=== PATIENT | female | born 1995 | race Caucasian/White ===

== ENCOUNTER 2017-12-10 10:30 | Inpatient (IN) | payer OTHER ==
[2017-12-10] MEDS ORDERED: DINOPROSTONE 10 MG VAGINAL SUPPOSITORY VG ONE (11:15)
[2017-12-10 11:51] VITALS: BMI 30.3
[2017-12-10 12:11] LABS: BASO % 0.3 % (0-2.0); EOS % 1.2 % (0-4.5); HEMATOCRIT 36.1 % (32.4-45.2); HEMOGLOBIN 12.1 GM/dL (10.7-15.3); LYMPH % 19.8 % (8-40); MCH 29.9 pg (25.7-33.7); MCHC 33.4 g/dl (32.0-36.0); MEAN CELL VOLUME 89.5 fl (80-96); MEAN PLT VOLUME 10.4 fl (7.5-11.1); MONO % 10.1 % (3.8-10.2); NEUT % 68.6 % (42.8-82.8); PLATELET COUNT 253 K/MM3 (134-434); RBC 4.03 M/mm3 (3.60-5.2); WHITE BLOOD COUNT 18.1 K/mm3 (4.0-10.0)
[2017-12-10 12:33] LABS: INR 0.97 (0.83-1.09)
[2017-12-10 12:35] LABS: ACTIVATED PTT 27.3 SECONDS (25.2-36.5)
[2017-12-10] MEDS ORDERED: TUBERCULIN PPD 5 TU/0.1ML SYRINGE (IN PATIENT USE ONLY) ID ONE (13:00)
[2017-12-10 13:09] LABS: ANION GAP 11 MMOL/L (8-16); BLOOD UREA NITROGEN 11 mg/dL (7-18); CALCIUM 8.8 mg/dL (8.5-10.1); CHLORIDE 111 mmol/L (98-107); CO2 18 mmol/L (21-32); CREATININE 0.5 mg/dL (0.55-1.3); GLUCOSE,RANDOM 69 mg/dL (74-106); POTASSIUM 4.2 mmol/L (3.5-5.1); SODIUM 139 mmol/L (136-145)
--- NOTE | 2017-12-10 16:17 | HP ---
Past Medical History - Primary Care Physician PCP:: Jalil Olivas - Admission Chief Complaint: 21yo P0 with at EGA 40 1/7 wks with c/o leaking fluids since 3am History of Present Illness: Pt with leaking fluids since 3am, not in labor. Rh Negative Vag GBS Negative Prior hx of marijuana use Hx of XANAX abuse (illicit use) in - pt states that she stopped. Hx of smoking- pt states that she stopped History Source: Patient, Medical Record Limitations to Obtaining History: No Limitations - Past Medical History MANAGER RELIABILITY: No: Alzheimer's, CVA, Dementia, Migraine, Multiple Sclerosis, Peripheral Neuropathy, Parkinson's, Seizure, Syncope, TIA, Vertigo, Other Cardiovascular: No: AFIB, Aneurysm, Aortic Insufficiency, Aortic Stenosis, CAD, CHF, Deep Vein Thrombosis, HTN, Hyperlipdemia, GA, Mitral Insufficiency, Mitral Stenosis, Murmur, Pulmonary Hypertension, Other Pulmonary: No: Asthma, Bronchitis, Cancer, COPD, O2 Dependent, Pneumonia, Previously Intubated, Pulmonary Embolus, Pulmonary Fibrosis, Sleep Apnea, Other Gastrointestinal: No: Ascites, Cancer, Constipation, Crohn's Disease, Diverticulitis, Diverticulosis, Esophageal Varices, Gastritis, GERD, GI Bleed, Hemorrhoids, Hiatal Hernia, Inflamatory Bowel Disease, Irritable Bowel Disease, Pancreatitis, Peptic Ulcer Disease, Ulcerative Colitis, Other Hepatobiliary: No: Cirrhosis, Cholelithiasis, Cholecystitis, Choledocholithiasis , Hepatitis A, Hepatitis B, Hepatitis C, Other Renal/: No: Renal Failure, Renal Inusuff, BPH, Cancer, Hematuria, Hemodialysis , Neurogenic Bladder, Renal Calculi, UTI, Other Reproductive: No: Ectopic , Endometriosis, Fibroids, PID, Polycystic Ovary Syndrome, Postmenopausal, Other ...: 1 ...Para: 0 ...LMP: 03/03/17 ... Weeks Gestation by Dates: 40.2 ...EDC by Dates: 12/08/17 ...EDC by Sono: 12/09/17 Heme/Onc: No: Anemia, B12 Deficiency, Bleeding Disorder, Cancer, Current Chemotherapy, Current Radiation Therapy, Hemochromatosis, Hypercoaguable State, Myeloproliferative Synd, Sickle Cell Disease, Sickle Cell Trait, Thrombocytopenia, Other Infectious Disease: No: AIDS, C-Diff, Herpes Zoster, HIV, MRSA, STD's, Tuberculosis, VREF, Other Psych: Yes: Addictions (Stopped using in ) Musculoskeletal: No: Bursitis, Chronic low back pain, Hemiparesis, Hemiplegia, Osteoarthritis, Paraplegia, Other Rheumatology: No: Fibromyalgia, Gout, Lupus, Rheumatoid Arthritis, Sarcoidosis, Vasculitis, Other ENT: No: Allergic Rhinitis, Sinusitis, Other Endocrine: No: Anoop's Disease, [place]'s Disease, Diabetes Insipidus, Diabetes Mellitus, Hyperparathyroidism, Hyperthyroidism, Hypothyroidism, Osteopenia, SIADH, Other Dermatology: No: Basal Cell, Cellulitis, Eczema, Melanoma, Psoriasis, Squamous Cell, Other - Past Surgical History Past Surgical History: Yes: None Hx Myomectomy: No Hx Transabdominal Cerclage: No - Smoking History Smoking history: Never smoked Have you smoked in the past 12 months: Yes Aproximately how many cigarettes per day: 0 - Alcohol/Substance Use Hx Alcohol Use: No History of Substance Use: reports: Marijuana, Prescription (Xanax) Date of Last Use: 06/20/17 - Social History Usual Living Arrangement: Yes: With Parent ADL: Independent History of Recent Travel: Yes Home Medications - Allergies Allergies/Adverse Reactions: Allergies Allergy/AdvReac Type Severity Reaction Status Date / Time No Known Allergies Allergy Verified 11/27/17 14:09 - Home Medications Home Medications: Ambulatory Orders NK [No Known Home Medication] 12/10/17 Family Disease History - Family Disease History Family History: Denies Family Disease History: Other: Mother (Anxiety), Sister (Anxiety) Review of Systems - Review of Systems Constitutional: reports: No Symptoms Eyes: reports: No Symptoms HENT: reports: No Symptoms Neck: reports: No Symptoms Cardiovascular: reports: No Symptoms Respiratory: reports: No Symptoms Gastrointestinal: reports: No Symptoms Genitourinary: reports: No Symptoms Breasts: reports: No Symptoms Reported Musculoskeletal: reports: No Symptoms Integumentary: reports: No Symptoms Neurological: reports: No Symptoms Endocrine: reports: No Symptoms Hematology/Lymphatic: reports: No Symptoms Psychiatric: reports: No Symptoms Pain Intensity: 0 Physical Exam - Maternity Vital Signs: Vital Signs Temperature 97.8 F 12/10/17 14:00 Pulse Rate 81 12/10/17 15:00 Respiratory Rate 20 12/10/17 15:00 Blood Pressure 137/67 12/10/17 15:00 O2 Sat by Pulse Oximetry (%) Constitutional: Yes: Well Nourished, No Distress, Calm Eyes: Yes: WNL, Conjunctiva Clear HENT: Yes: WNL, Atraumatic, Normocephalic Neck: Yes: WNL, Supple, Trachea Midline Cardiovascular: Yes: WNL, Regular Rate and Rhythm Lungs: Clear to auscultation, Normal air movement - Abdominal Exam/OB Fundal Height: 40 Number of Fetuses: Single Presentation: Vertex Contractions: Yes Regularity: Irritability Intensity: Unaware Monitor Mode: External Heart Rate (range): 125 Category: I Accelerations: Non-Uniform Decelerations: None - Vaginal Exam/OB Vaginal Bleediing: No Speculum Exam: No Dilatation (cm): 1 Effacement (%): 50 Amniotic Membrane Status: Leaking Nitrazine Test: Positive Amniotic Fluid: Yes: Clear Presentation: Vertex/Position Station: -4 (Adequate pelvimetry) - Physical Exam Musculoskeletal: Yes: WNL Extremities: Yes: WNL Edema: No Integumentary: Yes: WNL Deep Tendon Reflex Grade: Normal +2 ...Motor Strength: WNL Psychiatric: Yes: WNL, Alert, Oriented - Labs Lab Results: CBC, BMP 12/10/17 11:30 12/10/17 11:30 Hemorrhage Risk Assessment - Risk Factors Medium Risk Factors: Yes: None High Risk Factors: Yes: None Risk Score: 1 Risk Level: Medium Risk Imaging - Results Ultrasound: Report Reviewed Assessment/Plan 21yo P0 with at EGA 40 1/7 wks with PROM. Pt is not in labor. Fetus with Category I tracing. Adequate gynecoid pelvimetry on exam. We had long discussion re: risks, benefits, and alternatives of labor induction. I explained the options of expectant management awaiting spontaneous labor, induction of labor, and elective section. The risks of uterine tachysystole, distress, uterine rupture, need for emergency C/S, hemorrhage, infection, scarring, etc. were discussed. We also discussed the risks of meconium aspiration, shoulder dystocia, and anesthesia options. The pt requested to proceed with induction. We discussed the alternative methods of induction with Cervidil, Cytotec, Folley ballon, and pitocin. The pt prefers Cervidil followed by pitocin, if needed.
[2017-12-10] MEDS: DEXTROSE 5%-LACTATED RINGERS 1,000 ML IV SCH (16:30)
[2017-12-10 16:53] LABS: URINE APPEARANCE CLEAR; URINE BILIRUBIN NEGATIVE (<2.0 mg/dL); URINE COLOR LTYELLOW; URINE GLUCOSE (UA) NEGATIVE (NEGATIVE); URINE KETONE NEGATIVE (NEGATIVE); URINE NITRITE NEGATIVE (NEGATIVE); URINE PROTEIN NEGATIVE (NEGATIVE); URINE UROBILINOGEN NEGATIVE mg/dL (0.2-1.0)
[2017-12-10 16:54] LABS: URINE LEUK ESTERASE 2+ (NEGATIVE)
[2017-12-10 16:55] LABS: EPI CELLS RARE /HPF (FEW); URINE MUCUS RARE
[2017-12-10 20:33] LABS: COCAINE, UR NEGATIVE ng/ml (CUTOFF=300); METHADONE, UR NEGATIVE ng/ml (CUTOFF=300); OPIATES, URI NEGATIVE ng/ml (CUTOFF=300); PHENCYCLIDINE,URINE NEGATIVE ng/ml (CUTOFF=25); URINE AMPHETAMINES NEGATIVE ng/ml (CUTOFF=500); URINE BARBITURATES NEGATIVE ng/ml (CUTOFF=200); URINE BENZODIAZEPINES NEGATIVE ng/ml (CUTOFF=200)
[2017-12-11] MEDS ORDERED: BUTORPHANOL TARTRATE 1 MG/ML VIAL IVPB ONE (00:20)
[2017-12-11] MEDS ORDERED: PROMETHAZINE HCL 25 MG/1 ML VIAL IVPB ONE (00:20)
[2017-12-11] MEDS: DEXTROSE 5%-LACTATED RINGERS 1,000 ML IV SCH (01:20)
[2017-12-11] MEDS ORDERED: BUTORPHANOL TARTRATE 1 MG/ML VIAL ONE ×2 (01:27)
[2017-12-11] MEDS ORDERED: PROMETHAZINE HCL 25 MG/1 ML VIAL ONE (01:28)
[2017-12-11] MEDS ORDERED: AMPICILLIN - 2 GM in SODIUM CHLORIDE 100 ML IVPB ONE (06:30)
[2017-12-11] MEDS ORDERED: AMPICILLIN SODIUM 2 GM VIAL ONE (06:47)
[2017-12-11] MEDS ORDERED: OXYTOCIN 30 UNITS in 0.9% NS 30 UNIT/500 ML INFUS.BAG IVPB ONE ×2 (06:47→09:08)
[2017-12-11] MEDS ORDERED: OXYTOCIN 30 UNITS in 0.9% NS 30 UNIT/500 ML INFUS.BAG IVPB SCH (07:00)
[2017-12-11] MEDS ORDERED: NALOXONE HCL 0.4 MG/ML VIAL IVPUSH PRN (08:17)
--- NOTE | 2017-12-11 08:25 | PN ---
Ante-Partal Exam - Subjective Subjective: Pt is c/o painful contractions. She requested epidural. Vital Signs: Vital Signs Temperature 97.9 F 12/11/17 07:00 Pulse Rate 82 12/11/17 07:00 Respiratory Rate 20 12/11/17 07:00 Blood Pressure 124/64 12/11/17 07:00 O2 Sat by Pulse Oximetry (%) Bleeding: No Headache: No Visual changes: No Right upper quadrant pain: No Pain (scale 1-10): 7 - Contractions Contractions: Yes Regularity: Irregular (q4-7min) Intensity: Moderate Monitor Mode: External - Exam during Labor Heart Rate: 130 Variability: Moderate Heart Rate Location: Midline Category: I Monitor Accelerations: Present Monitor Decelerations: None Amniotic Membrane Status: Leaking Amniotic Fluid: Clear - Intrapartum Hemorrhage Risk Medium Risk Factors: None High Risk Factors: None Risk Score: 0 Risk Level: Low Risk - Assessment/Plan Assessment/Plan: 21yo P0 with PROM undergoing labor induction. Pt is in spontaneous latent labor. The tracing is Category I. Plan to wait for pt to get an epidural and then start pitocin to augment contractions.
[2017-12-11] MEDS: ELECTROLYTE-148 SOLN 1,000 ML IV SCH ×3 (08:30→12:25)
[2017-12-11] MEDS ORDERED: FENTANYL/BUPIVACAINE/NS/PF - PCEA - 50 ML DISP.SYRIN EP ONE ×4 (09:08→22:06)
[2017-12-11] MEDS: FENTANYL/BUPIVACAINE/NS/PF - PCEA - 50 ML DISP.SYRIN EP SCH ×3 (09:15→17:52)
--- NOTE | 2017-12-11 09:29 | PN ---
Ante-Partal Exam - Subjective Subjective: S/p epidural, no complaints Vital Signs: Vital Signs Temperature 98.8 F 12/11/17 08:00 Pulse Rate 82 12/11/17 07:00 Respiratory Rate 20 12/11/17 07:00 Blood Pressure 124/64 12/11/17 07:00 O2 Sat by Pulse Oximetry (%) Bleeding: No Headache: No Visual changes: No Right upper quadrant pain: No Pain (scale 1-10): 0 - Contractions Contractions: Yes Regularity: Irregular Intensity: Moderate Monitor Mode: External - Exam during Labor Heart Rate: 130 Variability: Moderate Heart Rate Location: Midline Category: I Monitor Accelerations: Present Monitor Decelerations: None Exam: Vaginal Dilatation (cm): 3 Effacement (%): 80 Amniotic Membrane Status: Leaking Amniotic Fluid: Clear Presentation: Vertex Station: -2 - Intrapartum Hemorrhage Risk Medium Risk Factors: None High Risk Factors: None Risk Score: 0 Risk Level: Low Risk - Assessment/Plan Assessment/Plan: tracing category I Progressed in latent labor. Pitocin started. Afebrile, no s/sx's of chorio
[2017-12-11] MEDS ORDERED: AMPICILLIN SODIUM 1 GM VIAL ONE ×4 (09:41→22:28)
[2017-12-11] MEDS ORDERED: SODIUM CHLORIDE 100 ML IVPB ONE ×3 (09:41→16:26)
[2017-12-11] MEDS: AMPICILLIN - 1 GM in SODIUM CHLORIDE 100 ML IVPB SCH ×4 (10:07→22:30)
--- NOTE | 2017-12-11 11:57 | PN ---
Ante-Partal Exam - Subjective Subjective: No complaints Vital Signs: Vital Signs Temperature 98.4 F 12/11/17 10:00 Pulse Rate 80 12/11/17 11:00 Respiratory Rate 20 12/11/17 11:00 Blood Pressure 104/77 12/11/17 11:00 O2 Sat by Pulse Oximetry (%) 97 12/11/17 11:00 Bleeding: No Headache: No Visual changes: No Right upper quadrant pain: No Pain (scale 1-10): 0 - Contractions Contractions: Yes Regularity: Regular Intensity: Mild/Mod - Exam during Labor Heart Rate: 130 Variability: Moderate Heart Rate Location: Midline Category: I Monitor Accelerations: Present Monitor Decelerations: None Exam: Vaginal Dilatation (cm): 3 Effacement (%): 80 Amniotic Membrane Status: Leaking (AROM forebag) Amniotic Fluid: Meconium Stained Meconium Staining: Light Presentation: Vertex Station: -2 Remarks: Small amount of amniotic fluid noted - Intrapartum Hemorrhage Risk Medium Risk Factors: None High Risk Factors: None Risk Score: 0 Risk Level: Low Risk - Assessment/Plan Assessment/Plan: Latent labor Fetus with category I tracing Continue pitocin Monitor labor progress.
[2017-12-11] MEDS ORDERED: BUPIVACAINE HCL/PF 0.5% (5MG/ML) 10 ML VIAL ONE (18:26)
--- NOTE | 2017-12-11 21:46 | PN ---
Ante-Partal Exam - Subjective Subjective: No complaints Vital Signs: Vital Signs Temperature 99.0 F 12/11/17 20:00 Pulse Rate 110 H 12/11/17 21:00 Respiratory Rate 20 12/11/17 21:00 Blood Pressure 135/81 12/11/17 21:00 O2 Sat by Pulse Oximetry (%) 97 12/11/17 21:00 Bleeding: No Headache: No Visual changes: No Right upper quadrant pain: No Pain (scale 1-10): 0 - Contractions Contractions: Yes Regularity: Regular Intensity: Unaware Monitor Mode: External - Exam during Labor Heart Rate: 140 Variability: Moderate Heart Rate Location: Midline Category: I Monitor Accelerations: Present Monitor Decelerations: None Exam: Vaginal Dilatation (cm): 7 Effacement (%): 90 Amniotic Membrane Status: Leaking Amniotic Fluid: Clear Presentation: Vertex Station: -1 - Intrapartum Hemorrhage Risk Medium Risk Factors: None High Risk Factors: None Risk Score: 0 Risk Level: Low Risk - Assessment/Plan Assessment/Plan: Progressed to active phase. Fetus with Category I tracing. Continue pitocin Monitor progress. Continue Abx
[2017-12-12] MEDS ORDERED: LIDOCAINE HCL 1% PRESERVATIVE FREE - 30ML VIAL ONE (00:13)
[2017-12-12] MEDS ORDERED: OXYTOCIN 20 UNITS in 0.9% NS 20 UNIT/1,000 ML INFUS.BAG IV ONE ×2 (00:13→05:21)
[2017-12-12] MEDS ORDERED: ACETAMINOPHEN 1000 MG/100 ML VIAL (NON FORMULARY) IVPB ONE (00:18)
[2017-12-12] MEDS ORDERED: ACETAMINOPHEN INJECTION 100 ML IVPB ONE (00:23)
[2017-12-12] MEDS ORDERED: CLINDAMYCIN PHOSPHATE 600 MG/4 ML VIAL ONE (00:23)
--- NOTE | 2017-12-12 00:28 | PN ---
Ante-Partal Exam - Subjective Subjective: Pt is c/o pelvic pressure. Pt is o/w asymptomatic and feels well. She appeared to have low-grade fever on exam. Maternal tachycardia is noted. Temp= 100.0, oral Vital Signs: Vital Signs Temperature 99.0 F 12/11/17 20:00 Pulse Rate 117 H 12/11/17 23:45 Respiratory Rate 20 12/11/17 23:45 Blood Pressure 133/66 12/11/17 23:45 O2 Sat by Pulse Oximetry (%) 97 12/11/17 23:45 Bleeding: No Headache: No Visual changes: No Right upper quadrant pain: No Pain (scale 1-10): 0 - Contractions Contractions: No Regularity: Regular Intensity: Mod/Strong Monitor Mode: External - Exam during Labor Heart Rate: 145 Variability: Moderate Heart Rate Location: Midline Category: I Monitor Accelerations: Present Monitor Decelerations: None Exam: Vaginal Dilatation (cm): 9 Effacement (%): 90 Amniotic Membrane Status: Leaking Amniotic Fluid: Clear Presentation: Vertex Station: +1 - Intrapartum Hemorrhage Risk Medium Risk Factors: None High Risk Factors: None Risk Score: 0 Risk Level: Low Risk - Assessment/Plan Assessment/Plan: 21 yo with PROM for about 45hrs. Likely with early chorio. Plan to expand Abx coverage. Tylenol for fever. Fetus with Category I tracing Plan to continue the indx.
[2017-12-12] MEDS ORDERED: CLINDAMYCIN 900 MG PREMIX IVPB 900 MG/50 ML BAG IVPB SCH (02:00)
[2017-12-12] MEDS ORDERED: FENTANYL/BUPIVACAINE/NS/PF - PCEA - 50 ML DISP.SYRIN EP ONE (02:16)
[2017-12-12] MEDS ORDERED: AMPICILLIN SODIUM 2 GM VIAL ONE (02:17)
[2017-12-12] MEDS: AMPICILLIN - 2 GM in SODIUM CHLORIDE 100 ML IVPB SCH ×4 (02:25→20:30)
[2017-12-12] MEDS ORDERED: OXYTOCIN 20 UNITS in 0.9% NS 20 UNIT/1,000 ML INFUS.BAG IV SCH ×2 (04:15→11:00)
[2017-12-12 04:59] LABS: ARTERIAL BLD GAS O2 SATURATION 24.3 % (90-98.9); ARTERIAL BLOOD GAS BASE EXCESS -6.5 meq/l (-2-2); ARTERIAL BLOOD GAS PCO2 62.2 mmHg (35-45); ARTERIAL BLOOD GAS PO2 17.8 mmHg (80-100); ARTERIAL BLOOD GAS pH 7.2 (7.35-7.45)
[2017-12-12 05:00] LABS: VENOUS PC02 38.8 mmHg (38-52); VENOUS PH 7.32 (7.32-7.42); VENOUS PO2 28.2 mmHg (28-48)
[2017-12-12] MEDS ORDERED: IBUPROFEN 600 MG TABLET (FP) PO PRN (07:31)
[2017-12-12] MEDS ORDERED: ACETAMINOPHEN 325 MG TABLET (FP) PO PRN (07:31)
[2017-12-12] MEDS ORDERED: GENTAMICIN INJECTION 350 MG in DEXTROSE 5%-WATER - 250 ML IVPB SCH (10:00)
[2017-12-12] MEDS ORDERED: WITCH HAZEL 50% (TUCKS) 40 PAD/JAR PAD TP PRN (10:50)
[2017-12-12] MEDS ORDERED: BENZOCAINE 28 GM HEMORRHOIDAL OINTMENT TP PRN (10:50)
[2017-12-12] MEDS ORDERED: METHYLERGONOVINE MALEATE 0.2 MG/1 ML AMP IM PRN (10:50)
[2017-12-12] MEDS ORDERED: BISACODYL 10 MG SUPP.RECT RC PRN (10:50)
[2017-12-12] MEDS ORDERED: BENZOCAINE 20% 57 GM BOTTLE TP PRN (10:50)
[2017-12-12] MEDS ORDERED: AMPICILLIN - 2 GM in SODIUM CHLORIDE 100 ML IVPB ONE (10:52)
--- NOTE | 2017-12-12 10:54 | PN ---
Delivery - Delivery Vaginal Delivery: No Problems, Spontaneous Type of Anesthesia: Spinal Episiotomy/Laceration: Midline EBL (cc): 400 Delivery, Single - Stages of Labor Date 1st Stage Initiatied: 12/11/17 Time 1st Stage Initiated: 08:00 Date 2nd Stage Initiated: 12/12/17 Time 2nd Stage Initiated: 03:30 Date of Delivery: 12/12/17 Time of Delivery: 04:08 Date Placenta Delivered: 12/12/17 Time Placenta Delivered: 04:15 Placenta: Yes: Spontaneous, Normal Configuration - Condition of Infant Real Estate Instructor/Nuclear Medicine Officer Present: No Infant Gender: Female Weight: 3.232 kg Position: Right, OA Total Hours ROM (Hrs/Mins): 49Hrs/15Mins - 1 Minute Total Score: 8 5 Minutes Total Score: 9 - [place] Feeding Plan Initial Plan: Exclusive throughout hospitalization Benefits of Exclusively reinforced: Yes
[2017-12-12] MEDS ORDERED: AMPICILLIN - 2 GM in SODIUM CHLORIDE 100 ML IVPB SCH (11:00)
[2017-12-12] MEDS: IBUPROFEN 600 MG TABLET (FP) PO PRN ×2 (15:19→22:24)
[2017-12-12] MEDS: ACETAMINOPHEN 325 MG TABLET (FP) PO PRN ×2 (15:21→22:20)
[2017-12-13] MEDS: AMPICILLIN - 2 GM in SODIUM CHLORIDE 100 ML IVPB SCH (02:30)
[2017-12-13 08:05] LABS: BASO % 0.4 % (0-2.0); HEMOGLOBIN 9.3 GM/dL (10.7-15.3); LYMPH % 18.5 % (8-40); MCH 29.9 pg (25.7-33.7); MCHC 33.3 g/dl (32.0-36.0); MEAN CELL VOLUME 89.8 fl (80-96); MEAN PLT VOLUME 9.8 fl (7.5-11.1); MONO % 9.5 % (3.8-10.2); NEUT % 69.6 % (42.8-82.8); PLATELET COUNT 219 K/MM3 (134-434); RBC 3.12 M/mm3 (3.60-5.2); RDW 12.9 % (11.6-15.6); WHITE BLOOD COUNT 22.8 K/mm3 (4.0-10.0)
[2017-12-13] MEDS ORDERED: PRENATAL VITAMINS W/ FOLIC ACID TABLET (FP) PO SCH (10:00)
[2017-12-13 11:17] LABS: ANISOCYTOSIS 0; MACROCYTOSIS 0; PLATELET ESTIMATE NORMAL
--- NOTE | 2017-12-13 12:34 | PN ---
Post Progress Note - Subjective Subjective: Pt w/o complaints, afebrile Post Day: 1 Type of Delivery: Vital Signs: Vital Signs Temperature 98 F 12/13/17 07:40 Pulse Rate 75 12/13/17 07:40 Respiratory Rate 20 12/13/17 07:40 Blood Pressure 117/66 12/13/17 07:40 O2 Sat by Pulse Oximetry (%) 98 12/12/17 03:45 Breast Exam: Yes: Soft Uterus: Yes: Fundus Firm, Fundus below umbilicus, Non-tender Abdomen/GI: Yes: Abdomen soft, Passing flatus, Tolerating PO Lochia: Yes: Rubra Lochia, amount: Small Extremities: Yes: Calves non-tender, Edema (trace) Perineum: Yes: Episiotomy (repair intact) Activity: Ambulating - Labs Labs: CBC WBC 22.8 K/mm3 (4.0-10.0) H 12/13/17 07:00 RBC 3.12 M/mm3 (3.60-5.2) L 12/13/17 07:00 Hgb 9.3 GM/dL (10.7-15.3) L 12/13/17 07:00 Hct 28.0 % (32.4-45.2) L D 12/13/17 07:00 MCV 89.8 fl (80-96) 12/13/17 07:00 MCH 29.9 pg (25.7-33.7) 12/13/17 07:00 MCHC 33.3 g/dl (32.0-36.0) 12/13/17 07:00 RDW 12.9 % (11.6-15.6) 12/13/17 07:00 Plt Count 219 K/MM3 (134-434) 12/13/17 07:00 MPV 9.8 fl (7.5-11.1) 12/13/17 07:00 Absolute Neuts (auto) 15.9 K/mm3 (1.5-8.0) H 12/13/17 07:00 Neutrophils % 69.6 % (42.8-82.8) 12/13/17 07:00 Lymphocytes % 18.5 % (8-40) 12/13/17 07:00 Monocytes % 9.5 % (3.8-10.2) 12/13/17 07:00 Eosinophils % 2.0 % (0-4.5) 12/13/17 07:00 Basophils % 0.4 % (0-2.0) 12/13/17 07:00 Nucleated RBC % 0 % (0-0) 12/13/17 07:00 Assessment/Plan 21yo P1 s/p , doing well stable, afebrile. Elevated WBC is noted, however pti s afebrile and no s/sx's of infection. care instructions reviewed. Continue routine care. Ambulation encouraged Discharge instruction reviewed..
--- NOTE | 2017-12-13 12:37 | DS ---
Physical Exam-MEASUREMENT AND SENSING TECHNICIAN Vital Signs: Vital Signs Temperature 98 F 12/13/17 07:40 Pulse Rate 75 12/13/17 07:40 Respiratory Rate 20 12/13/17 07:40 Blood Pressure 117/66 12/13/17 07:40 O2 Sat by Pulse Oximetry (%) 98 12/12/17 03:45 Constitutional: Yes: Well Nourished, No Distress, Calm Eyes: Yes: WNL, Conjunctiva Clear HENT: Yes: WNL, Atraumatic, Normocephalic Neck: Yes: WNL, Supple, Trachea Midline Cardiovascular: Yes: WNL, Regular Rate and Rhythm Respiratory: Yes: WNL, Regular, CTA Bilaterally Gastrointestinal: Yes: WNL, Normal Bowel Sounds, Soft ...Rectal Exam: Yes: Deferred Renal/: Yes: WNL Internal Exam Deferred: Yes ....Post : Yes: Uterus firm, Uterus non-tender, Slight lochia rubra Breast(s): Yes: WNL Musculoskeletal: Yes: WNL Extremities: Yes: WNL Edema: Yes Edema: LLE: Trace, RLE: Trace Integumentary: Yes: WNL Neurological: Yes: WNL, Alert, Oriented ...Motor Strength: WNL Psychiatric: Yes: WNL, Alert, Oriented Labs: CBC, BMP 12/13/17 07:00 12/10/17 11:30 Delivery - Delivery Vaginal Delivery: No Problems, Spontaneous Type of Anesthesia: Spinal Episiotomy/Laceration: Midline EBL (cc): 400 Delivery, Single - Stages of Labor Date 1st Stage Initiatied: 12/11/17 Time 1st Stage Initiated: 08:00 Date 2nd Stage Initiated: 12/12/17 Time 2nd Stage Initiated: 03:30 Date of Delivery: 12/12/17 Time of Delivery: 04:08 Date Placenta Delivered: 12/12/17 Time Placenta Delivered: 04:15 Placenta: Yes: Spontaneous, Normal Configuration - Condition of Infant Die Repair/Combat Systems Engineer Present: No Infant Gender: Female Weight: 3.232 kg Position: Right, OA Total Hours ROM (Hrs/Mins): 49Hrs/15Mins - 1 Minute Total Score: 8 5 Minutes Total Score: 9 - [place] Feeding Plan Initial Plan: Exclusive throughout hospitalization Benefits of Exclusively reinforced: Yes Discharge Summary Reason For Visit: LABOR Spont labor at term Procedures: Principal: Other Procedures: Repair of episiotomy Hospital Course: Normal recovery Condition: Good - Instructions Diet, Activity, Other Instructions: Physical activity Resume your normal everyday activity as tolerated no heavy lifting or exercise until seen by your surgeon. You may walk unlimited andi of and climb stairs. You may resume driving the car when you feel safe and comfortable behind the wheel. No sexual activity as instructed. Wound care If you have a bandage, leave it on, and keep dry for 48-72 hours. After that time discard the outer bandage. If they are tapes on the skin under the out of bandage leave them in place. They will peel off in the next 7 to 10 days. Do Not Peel them off. You may shower the day after surgery. If there are tapes present on the skin, you may shower over them. Diet There are no dietary restrictions. Eat healthy, high-fiber foods. Drink 6 to 8 glasses of liquid each day. This will assist in keeping your bowels are regular. Pain management You may take Tylenol or acetaminophen or Ibuprofen (for example, Motrin, Advil etc.) from my pain prescription medication is ordered should be taken as prescribed for moderate to severe pain. Call MD for any of the following: Severe pain not relieved by medication Fever of 101 or higher Excessive bleeding or drainage on dressing Inability to urinate Referrals: Jalil Olivas MD [Staff Physician] - Disposition: HOME - Home Medications Comprehensive Discharge Medication List: Ambulatory Orders NK [No Known Home Medication] 12/10/17
[2017-12-13] MEDS ORDERED: SENNOSIDES/DOCUSATE COMBO (SENNA PLUS) TABLET (UD) PO PRN (22:00)
[2017-12-14 08:02] LABS: HEMATOCRIT 29.5 % (32.4-45.2); HEMOGLOBIN 9.8 GM/dL (10.7-15.3); MCH 29.8 pg (25.7-33.7); MCHC 33.3 g/dl (32.0-36.0); MEAN CELL VOLUME 89.4 fl (80-96); MEAN PLT VOLUME 9.4 fl (7.5-11.1); PLATELET COUNT 253 K/MM3 (134-434); RDW 13.2 % (11.6-15.6); WHITE BLOOD COUNT 16.8 K/mm3 (4.0-10.0)
[2017-12-14 09:17] VITALS: BP 140/72; PULSE 78; TEMP 98.1
== END 2017-12-14 17:25 | disposition home or self-care (01) | DRG 775 ==
LOC: JLDR 10:30 → J3W 12-12 06:17
PROVIDERS: ADMIT Obstetrics & Gynecology; ATTEND Obstetrics & Gynecology
PROC: 10E0XZZ Delivery of Products of Conception, External Approach (ICD-10-PCS; principal; 2017-12-10)
PROC: 0W8NXZZ Division of Female Perineum, External Approach (ICD-10-PCS; 2017-12-10)
DX: O42.12 Full-term premature rupture of membranes, onset of labor more than 24 hours following rupture (principal); O41.1230 Chorioamnionitis, third trimester, not applicable or unspecified; O77.0 Labor and delivery complicated by meconium in amniotic fluid; O48.0 Post-term pregnancy; Z37.0 Single live birth; Z3A.40 40 weeks gestation of pregnancy; Z87.891 Personal history of nicotine dependence
CPT/HCPCS: 36415; 36600; 59409; 80048; 80307; 81003; 81015; 82803; 85025; 85027; 85610; 85730; 86593; 86850; 86870; 86900; 86901; 86902; 87086; 87389; J0131

== ENCOUNTER 2020-11-23 00:40 | Emergency (ER) | payer OTHER ==
[2020-11-23 00:55] VITALS: BP 124/82; PULSE 76; TEMP 98.3; BMI 23.8
== END 2020-11-23 03:16 | disposition home or self-care (01) ==
LOC: JER 00:40
DX: M79.641 Pain in right hand (principal); W06.XXXA Fall from bed, initial encounter
CPT/HCPCS: 73130-TC-RT-FY; 99283-25